=== PATIENT | male | born 1965 | race Two or more races ===

== ENCOUNTER 2019-04-10 12:54 | Inpatient (IN) | payer MEDICAID, SELFPAY ==
[~2019-04-10] VITALS: Ht 170.2 cm; Wt 97.4 kg
--- NOTE | 2019-04-10 13:20 | NUR ---
PT WITH C/O N/V X3 DAYS, HE STATES HE HAS MIGRAINES. PT WITH HX OF DM, DOESNT CHECK HIS SUGARS, PT STATES HE MEDICATED HIMSELF ON HOW HE "FEELS" HIS SUGAR IS. PT STATES HAVING SOME ABDOMINAL DISCOMORT, LOWER ABDOMEN. ER PROVIDER IN TO EVAL PT, PT TO NIBP, CONT PULSE OX.
[2019-04-10] MEDS ORDERED: METOCLOPRAMIDE 5 MG/ML, 2ML ONE (13:55)
[2019-04-10] MEDS ORDERED: KETOROLAC 30 MG/1 ML ONE (13:55)
[2019-04-10] MEDS ORDERED: SODIUM CHLORIDE 0.9% 1,000ML IVBOLUS ONE (14:00)
[2019-04-10] MEDS ORDERED: METOCLOPRAMIDE 5 MG/ML, 2ML IVPush ONE (14:00)
[2019-04-10] MEDS ORDERED: KETOROLAC 30 MG/1 ML IVPush ONE (14:00)
[2019-04-10 14:12] LABS: BASOPHILS # (AUTO) 0.03 x10^3/uL (0-0.1); BASOPHILS % (AUTO) 0 % (0-1); EOSINOPHILS % (AUTO) 1 % (1-7); LYMPHOCYTES # (AUTO) 1.33 x10^3/uL (1-3.4); LYMPHOCYTES % (AUTO) 10 % (22-44); MD NO; MEAN CORPUSCULAR HEMOGLOBIN 28.3 pg (27.5-34.5); MEAN CORPUSCULAR HGB CONC 33.6 g/dL (33.2-36.2); MEAN CORPUSCULAR VOLUME 84.2 fL (81-97); MEAN PLATELET VOLUME 9.2 fL (7.4-10.4); MONOCYTES # (AUTO) 0.76 x10^3/uL (0.2-0.8); MONOCYTES % (AUTO) 5 % (2-9); NEUTROPHILS % (AUTO) 84 % (42-75); PLATELET COUNT 240 x10^3/uL (130-400); RED BLOOD COUNT 4.38 x10^6/uL (4.38-5.82); RED CELL DISTRIBUTION WIDTH 13.3 % (9.4-14.8)
[2019-04-10 14:19] LABS: ALANINE AMINOTRANSFERASE 13 U/L (12-78); ALBUMIN 2.8 g/dL (3.4-5.0); ANION GAP 14 mmol/L (5-15); CALCIUM 8.9 mg/dL (8.5-10.1); CHLORIDE 92 mmol/L (98-107)
[2019-04-10 14:22] LABS: ALKALINE PHOSPHATASE 105 U/L (45-117); BILIRUBIN,TOTAL 0.4 mg/dL (0.2-1.0); CREATININE 1.41 mg/dL (0.7-1.3); TOTAL PROTEIN 7.3 g/dL (6.4-8.2)
--- NOTE | 2019-04-10 14:33 | NUR ---
PT JAILYN GHOSH WOULD LIKE TO BE CALLED IF PT IS ADMITTED, [phone]
--- NOTE | 2019-04-10 15:00 | NUR ---
PT TO BE ADMITTED, AWAITING BED
[2019-04-10 15:02] LABS: ACETONE, SERUM Large (80mg/dL) mg/dL (Negative)
[2019-04-10 15:17] LABS: MICROSCOPIC AUTO
[2019-04-10 15:27] LABS: CULTURE INDICATED? YES
[2019-04-10 15:44] LABS: HEMOGLOBIN A1C 13.4 % (4.2-6.3)
[2019-04-10] MEDS ORDERED: INSU100V8 SQ (16:05)
[2019-04-10] MEDS ORDERED: METF500T17 PO (16:05)
[2019-04-10] MEDS ORDERED: ASPI81TA45 PO (16:05)
--- NOTE | 2019-04-10 16:07 | NUR ---
PT RESTING ON ANITA RAMIREZ NOTED
[2019-04-10] MEDS ORDERED: INSULIN REGULAR 100 UNITS/ML, 3ML VIAL IVPush ONE (16:30)
[2019-04-10] MEDS ORDERED: LABETALOL 5MG/ML, 20ML IVPush PRN (16:30)
[2019-04-10] MEDS ORDERED: hydrALAzine 20 MG/ML, 1ML IVPush PRN (16:30)
[2019-04-10] MEDS ORDERED: DEXTROSE 4 GM TAB.CHEW PO PRN (16:30)
[2019-04-10] MEDS ORDERED: DOCUSATE 100 MG CAPSULE PO PRN (16:30)
[2019-04-10] MEDS ORDERED: ONDANSETRON 2MG/ML, 2ML IVPush PRN (16:30)
[2019-04-10] MEDS ORDERED: POLYETHYLENE GLYCOL 17 GM PACKET PO PRN (16:30)
[2019-04-10] MEDS ORDERED: BISACODYL 10 MG SUPP PR PRN (16:30)
[2019-04-10] MEDS ORDERED: GLUCAGON 1 MG IM PRN (16:30)
[2019-04-10] MEDS ORDERED: DEXTROSE 50%, 50ML SYRINGE IVPush PRN (16:30)
[2019-04-10] MEDS ORDERED: ONDANSETRON ODT 4 MG PO PRN (16:30)
[2019-04-10 16:41] LABS: PH, VENOUS 7.382 pH (7.320-7.420)
[2019-04-10] MEDS ORDERED: CEFTRIAXONE PMX 1GM/50ML 50 ML ONE (16:42)
[2019-04-10] MEDS: CEFTRIAXONE PMX 1GM/50ML 50 ML IV SCH (16:44)
[2019-04-10 16:48] LABS: FIO2 ROOM AIR %
--- NOTE | 2019-04-10 16:56 | NUR ---
REPORT GIVEN TO RECTRINIDAD LOPEZ
[2019-04-10 17:07] VITALS: BP 155/101
[2019-04-10 19:36] VITALS: BP 151/88
[2019-04-10] MEDS: SODIUM CHLORIDE FLUSH 10ML SYR IVF SCH (21:27)
[2019-04-10] MEDS: INSULIN LISPRO 100 UNITS/ML, PEN SQ-INSULIN SCH (21:27)
[2019-04-10] MEDS: SODIUM CHLORIDE 0.9% 1,000 ML IV SCH (21:28)
[2019-04-10] MEDS: HEPARIN 5,000 UNITS/ML, 1ML SQ SCH (21:28)
[2019-04-11 01:45] VITALS: BP 156/92
[2019-04-11 04:37] LABS: BASOPHILS # (AUTO) 0.07 x10^3/uL (0-0.1); BASOPHILS % (AUTO) 1 % (0-1); EOSINOPHILS # (AUTO) 0.45 x10^3/uL (0-0.4); EOSINOPHILS % (AUTO) 4 % (1-7); LYMPHOCYTES # (AUTO) 1.89 x10^3/uL (1-3.4); LYMPHOCYTES % (AUTO) 17 % (22-44); MD NO; MEAN CORPUSCULAR HGB CONC 34.3 g/dL (33.2-36.2); MEAN CORPUSCULAR VOLUME 84.3 fL (81-97); MEAN PLATELET VOLUME 10.2 fL (7.4-10.4); MONOCYTES # (AUTO) 0.94 x10^3/uL (0.2-0.8); MONOCYTES % (AUTO) 8 % (2-9); NEUTROPHILS # (AUTO) 7.86 x10^3/uL (1.8-6.8); NEUTROPHILS % (AUTO) 70 % (42-75); PLATELET COUNT 256 x10^3/uL (130-400); RED BLOOD COUNT 4.12 x10^6/uL (4.38-5.82); RED CELL DISTRIBUTION WIDTH 13.9 % (9.4-14.8)
[2019-04-11 04:45] LABS: ANION GAP 10 mmol/L (5-15); CALCIUM 8.4 mg/dL (8.5-10.1); CHLORIDE 97 mmol/L (98-107); CREATININE 1.38 mg/dL (0.7-1.3)
[2019-04-11] MEDS: SODIUM CHLORIDE 0.9% 1,000 ML IV SCH (04:58)
[2019-04-11] MEDS: HEPARIN 5,000 UNITS/ML, 1ML SQ SCH ×3 (05:30→22:22)
[2019-04-11 07:35] VITALS: BP 185/113
[2019-04-11] MEDS: INSULIN LISPRO 100 UNITS/ML, PEN SQ-INSULIN SCH ×4 (08:11→19:39)
[2019-04-11] MEDS: SODIUM CHLORIDE FLUSH 10ML SYR IVF SCH ×2 (08:11→19:40)
[2019-04-11] MEDS: ACETAMINOPHEN 325 MG TABLET PO PRN ×2 (09:08→21:05)
[2019-04-11] MEDS ORDERED: METOCLOPRAMIDE 5 MG/ML, 2ML IVPush ONE (09:30)
[2019-04-11] MEDS ORDERED: METOCLOPRAMIDE 5 MG/ML, 2ML IVPush PRN (12:00)
[2019-04-11 14:00] VITALS: BP 147/90
[2019-04-11] MEDS: LISINOPRIL 10 MG TABLET PO SCH (14:22)
[2019-04-11] MEDS: INSULIN GLARGINE 100 UNITS/ML, PEN SQ-INSULIN SCH (14:23)
[2019-04-11] MEDS: CEFTRIAXONE PMX 1GM/50ML 50 ML IV SCH (16:27)
[2019-04-11] MEDS: metFORMIN 850 MG TABLET PO SCH (16:27)
[2019-04-11] MEDS ORDERED: INSULIN LISPRO 100 UNITS/ML, PEN SQ-INSULIN ONE ×2 (18:30→21:00)
[2019-04-11 19:06] VITALS: BP 138/86
[2019-04-12 01:41] VITALS: BP 144/92
[2019-04-12 05:31] LABS: BASOPHILS # (AUTO) 0.07 x10^3/uL (0-0.1); BASOPHILS % (AUTO) 1 % (0-1); EOSINOPHILS # (AUTO) 0.35 x10^3/uL (0-0.4); EOSINOPHILS % (AUTO) 3 % (1-7); LYMPHOCYTES # (AUTO) 1.77 x10^3/uL (1-3.4); LYMPHOCYTES % (AUTO) 14 % (22-44); MD NO; MEAN CORPUSCULAR HEMOGLOBIN 28.6 pg (27.5-34.5); MEAN CORPUSCULAR HGB CONC 33.5 g/dL (33.2-36.2); MEAN CORPUSCULAR VOLUME 85.4 fL (81-97); MEAN PLATELET VOLUME 9.6 fL (7.4-10.4); MONOCYTES # (AUTO) 0.99 x10^3/uL (0.2-0.8); MONOCYTES % (AUTO) 8 % (2-9); NEUTROPHILS # (AUTO) 9.39 x10^3/uL (1.8-6.8); NEUTROPHILS % (AUTO) 75 % (42-75); PLATELET COUNT 281 x10^3/uL (130-400); RED BLOOD COUNT 4.24 x10^6/uL (4.38-5.82); RED CELL DISTRIBUTION WIDTH 13.5 % (9.4-14.8)
[2019-04-12 05:40] LABS: ANION GAP 9 mmol/L (5-15); CALCIUM 8.4 mg/dL (8.5-10.1); CHLORIDE 100 mmol/L (98-107)
[2019-04-12 05:41] LABS: CREATININE 1.18 mg/dL (0.7-1.3)
[2019-04-12] MEDS: HEPARIN 5,000 UNITS/ML, 1ML SQ SCH ×3 (05:51→22:30)
[2019-04-12 07:20] VITALS: BP 128/84
[2019-04-12] MEDS: INSULIN LISPRO 100 UNITS/ML, PEN SQ-INSULIN SCH ×4 (09:56→20:45)
[2019-04-12] MEDS: INSULIN GLARGINE 100 UNITS/ML, PEN SQ-INSULIN SCH (09:56)
[2019-04-12] MEDS: metFORMIN 850 MG TABLET PO SCH ×2 (09:56→16:38)
[2019-04-12] MEDS: LISINOPRIL 10 MG TABLET PO SCH (09:57)
[2019-04-12] MEDS: SODIUM CHLORIDE FLUSH 10ML SYR IVF SCH ×2 (09:57→20:46)
[2019-04-12] MEDS: ACETAMINOPHEN 325 MG TABLET PO PRN ×2 (11:51→20:17)
[2019-04-12 13:05] VITALS: BP 119/78
[2019-04-12] MEDS: CEFTRIAXONE PMX 1GM/50ML 50 ML IV SCH (16:38)
[2019-04-12 22:52] VITALS: BP 112/72
[2019-04-13 01:28] VITALS: BP 118/64
[2019-04-13] MEDS: ACETAMINOPHEN 325 MG TABLET PO PRN ×4 (04:06→17:10)
[2019-04-13] MEDS: HEPARIN 5,000 UNITS/ML, 1ML SQ SCH ×3 (05:53→22:56)
[2019-04-13 07:52] VITALS: BP 123/80
[2019-04-13] MEDS: metFORMIN 850 MG TABLET PO SCH (08:44)
[2019-04-13] MEDS: LISINOPRIL 10 MG TABLET PO SCH (08:44)
[2019-04-13 08:47] LABS: BASOPHILS # (AUTO) 0.38 x10^3/uL (0-0.1); BASOPHILS % (AUTO) 3 % (0-1); EOSINOPHILS # (AUTO) 0.28 x10^3/uL (0-0.4); EOSINOPHILS % (AUTO) 2 % (1-7); LYMPHOCYTES # (AUTO) 1.89 x10^3/uL (1-3.4); LYMPHOCYTES % (AUTO) 15 % (22-44); MD NO; MEAN CORPUSCULAR HEMOGLOBIN 28.3 pg (27.5-34.5); MEAN CORPUSCULAR HGB CONC 33.8 g/dL (33.2-36.2); MEAN CORPUSCULAR VOLUME 83.7 fL (81-97); MEAN PLATELET VOLUME 9.4 fL (7.4-10.4); MONOCYTES # (AUTO) 0.81 x10^3/uL (0.2-0.8); MONOCYTES % (AUTO) 7 % (2-9); NEUTROPHILS # (AUTO) 9.02 x10^3/uL (1.8-6.8); NEUTROPHILS % (AUTO) 73 % (42-75); PLATELET COUNT 276 x10^3/uL (130-400); RED BLOOD COUNT 4.04 x10^6/uL (4.38-5.82); RED CELL DISTRIBUTION WIDTH 13.7 % (9.4-14.8)
[2019-04-13] MEDS: INSULIN LISPRO 100 UNITS/ML, PEN SQ-INSULIN SCH ×4 (08:48→21:27)
[2019-04-13] MEDS: INSULIN GLARGINE 100 UNITS/ML, PEN SQ-INSULIN SCH (08:50)
[2019-04-13] MEDS: SODIUM CHLORIDE FLUSH 10ML SYR IVF SCH ×2 (09:00→21:27)
[2019-04-13] MEDS ORDERED: IBUPROFEN 200 MG TABLET PO PRN (13:30)
[2019-04-13 14:04] VITALS: BP 104/73
[2019-04-13] MEDS: CEFTRIAXONE PMX 1GM/50ML 50 ML IV SCH (16:59)
[2019-04-13] MEDS: metFORMIN 500 MG TABLET PO SCH (17:11)
[2019-04-13 19:36] VITALS: BP 119/80
[2019-04-13 19:47] VITALS: BP 119/80
[2019-04-14 01:32] VITALS: BP 117/79
[2019-04-14] MEDS: HEPARIN 5,000 UNITS/ML, 1ML SQ SCH (06:16)
[2019-04-14 07:06] LABS: ANION GAP 5 mmol/L (5-15); CALCIUM 8.4 mg/dL (8.5-10.1); CHLORIDE 100 mmol/L (98-107); CREATININE 1.43 mg/dL (0.7-1.3)
[2019-04-14 07:11] LABS: BASOPHILS # (AUTO) 0.04 x10^3/uL (0-0.1); BASOPHILS % (AUTO) 1 % (0-1); EOSINOPHILS # (AUTO) 0.26 x10^3/uL (0-0.4); EOSINOPHILS % (AUTO) 3 % (1-7); LYMPHOCYTES # (AUTO) 2.02 x10^3/uL (1-3.4); LYMPHOCYTES % (AUTO) 23 % (22-44); MD NO; MEAN CORPUSCULAR HEMOGLOBIN 28.4 pg (27.5-34.5); MEAN CORPUSCULAR HGB CONC 33.9 g/dL (33.2-36.2); MONOCYTES # (AUTO) 0.74 x10^3/uL (0.2-0.8); MONOCYTES % (AUTO) 9 % (2-9); NEUTROPHILS % (AUTO) 65 % (42-75); PLATELET COUNT 281 x10^3/uL (130-400); RED BLOOD COUNT 4.01 x10^6/uL (4.38-5.82); RED CELL DISTRIBUTION WIDTH 13.4 % (9.4-14.8)
[2019-04-14 07:45] VITALS: BP 107/71
[2019-04-14] MEDS ORDERED: INSULIN GLARGINE 100 UNITS/ML, PEN SQ-INSULIN SCH (08:00)
[2019-04-14] MEDS: INSULIN LISPRO 100 UNITS/ML, PEN SQ-INSULIN SCH ×2 (08:34→11:00)
[2019-04-14] MEDS: LISINOPRIL 10 MG TABLET PO SCH (08:35)
[2019-04-14] MEDS: metFORMIN 500 MG TABLET PO SCH (08:35)
[2019-04-14] MEDS: SODIUM CHLORIDE FLUSH 10ML SYR IVF SCH (09:00)
[2019-04-14] MEDS ORDERED: GLIP10TA13 PO (10:19)
[2019-04-14] MEDS ORDERED: INSU100V8 SQ ×2 (10:19)
[2019-04-14] MEDS ORDERED: METF500T17 PO (10:19)
[2019-04-14] MEDS ORDERED: LISI-167 PO (10:19)
[2019-04-14] MEDS ORDERED: AMOX-291 PO (10:25)
[2019-04-21] MEDS ORDERED: INSU100I34 SQ (11:21)
== END 2019-04-14 12:14 | disposition home or self-care (01) | DRG 871 ==
LOC: ED 16:20 → EDIP 16:57 → 3NE 17:03 → DCLOUNGE 04-14 11:40 → UNDODISIN 04-14 12:14
PROVIDERS: ADMIT Internal Medicine; ATTEND Internal Medicine
DX: A41.9 Sepsis, unspecified organism (principal); E43 Unspecified severe protein-calorie malnutrition; E87.1 Hypo-osmolality and hyponatremia; B95.61 Methicillin susceptible Staphylococcus aureus infection as the cause of diseases classified elsewhere; D64.9 Anemia, unspecified; E11.22 Type 2 diabetes mellitus with diabetic chronic kidney disease; E11.65 Type 2 diabetes mellitus with hyperglycemia; Z68.33 Body mass index [BMI] 33.0-33.9, adult; E86.0 Dehydration; F12.90 Cannabis use, unspecified, uncomplicated; G43.009 Migraine without aura, not intractable, without status migrainosus; I12.9 Hypertensive chronic kidney disease with stage 1 through stage 4 chronic kidney disease, or unspecified chronic kidney disease; J45.20 Mild intermittent asthma, uncomplicated; N18.3 Chronic kidney disease, stage 3 (moderate); N30.91 Cystitis, unspecified with hematuria; Z59.0 Homelessness; Z79.4 Long term (current) use of insulin; Z79.899 Other long term (current) drug therapy; Z83.3 Family history of diabetes mellitus; Z91.14 Patient's other noncompliance with medication regimen
CPT/HCPCS: 36415; 80048; 80053; 81001; 82010; 82803; 82947; 82962; 83036; 83605; 83735; 84100; 85025; 87040; 87077; 87086; 87186; 96361; 96374; 96375; 99285; G0378; J0696; J1644; J1815; J1885; J2405; J0360; J2765; J7030

== ENCOUNTER 2020-08-09 01:04 | Emergency (ER) | payer MEDICAID ==
[~2020-08-09] VITALS: Ht 170.2 cm; Wt 65.0 kg
[~2020-08-09 01:04] MED LIST: AMOX-291 PO; ASPI81TA45 PO; GLIP10TA13 PO; INSU100I34 SQ; INSU100V8 SQ; LISI-167 PO; METF500T17 PO
[2020-08-09] MEDS ORDERED: SODIUM CHLORIDE FLUSH 10ML SYR IVF ONE (01:30)
[2020-08-09] MEDS ORDERED: FAMOTIDINE 20 MG/2 ML IV ONE (01:30)
[2020-08-09] MEDS ORDERED: SODIUM CHLORIDE 0.9% 1,000ML IVBOLUS ONE (01:30)
[2020-08-09] MEDS ORDERED: ONDANSETRON 2MG/ML, 2ML IVPush ONE (01:30)
--- NOTE | 2020-08-09 01:30 | NUR ---
PT BIB EMS FROM HOME TONIGHT FOR N/V ALL NIGHT. PER EMS, PT TESTED POSITIVE FOR COVID ON THURSDAY. PT DENIES RESPIRATORY SYMPTOMS, BUT BASICALLY STATES HE FEELS "UNWELL". UPON ARRIVAL TO [facility] ED, PT ATTACHED TO VS AND CARDIAC MONITORS. VSS AT THIS TIME. PT EDUCATED ON ER PROCESS AND POC AND VERBALIZES UNDERSTANDING. PT HAS CALL LIGHT WITHIN REACH AND PROVIDED A WARM BLANKET. AWAITING NEW ORDERS FOR PT AT THIS TIME.
[2020-08-09] MEDS ORDERED: FAMOTIDINE 20 MG/2 ML ONE (01:32)
[2020-08-09] MEDS ORDERED: ONDANSETRON 2MG/ML, 2ML ONE (01:32)
--- NOTE | 2020-08-09 01:42 | NUR ---
pt medicated per mar at this time. lab at to draw pt blood. pt has call light within reach. all vs and cardiac monitors attached.
[2020-08-09 01:49] LABS: O2 FLOW 0 L/min; PH, VENOUS 7.345 pH (7.320-7.420)
[2020-08-09 01:58] LABS: BASOPHILS % (AUTO) 0 % (0-1); EOSINOPHILS % (AUTO) 0 % (1-7); LYMPHOCYTES % (AUTO) 9 % (22-44); MEAN CORPUSCULAR HEMOGLOBIN 28.8 pg (27.5-34.5); MEAN PLATELET VOLUME 9.1 fL (7.4-10.4); MONOCYTES % (AUTO) 7 % (2-9); NEUTROPHILS % (AUTO) 84 % (42-75); PLATELET COUNT 188 x10^3/uL (130-400); RED BLOOD COUNT 4.34 x10^6/uL (4.38-5.82)
[2020-08-09 02:00] LABS: MD NO
[2020-08-09 02:03] LABS: ACETONE, SERUM Trace (Negative); ALANINE AMINOTRANSFERASE 23 U/L (12-78); ALBUMIN 2.7 g/dL (3.4-5.0); ANION GAP 8 mmol/L (5-15); CHLORIDE 104 mmol/L (98-107); CREATININE 1.17 mg/dL (0.7-1.3)
[2020-08-09 02:05] LABS: ALKALINE PHOSPHATASE 88 U/L (45-117); BILIRUBIN,TOTAL 0.7 mg/dL (0.2-1.0); TOTAL PROTEIN 7.1 g/dL (6.4-8.2)
[2020-08-09 03:10] VITALS: BP 168/94
--- NOTE | 2020-08-09 03:11 | NUR ---
Patient/Caregiver given discharge instructions and they have confirmed that they understand the instructions. Patient ambulatory with steady gait. PIV DC PRIOR TO PT LEAVING ER
== END 2020-08-09 03:17 | disposition home or self-care (01) ==
LOC: ED 01:30
DX: U07.1 COVID-19 (principal); J18.9 Pneumonia, unspecified organism; E11.65 Type 2 diabetes mellitus with hyperglycemia; R11.2 Nausea with vomiting, unspecified; R00.0 Tachycardia, unspecified; Z79.4 Long term (current) use of insulin
CPT/HCPCS: 36415; 71045; 80053; 82010; 82803; 85025; 93005; 99285; U0003